=== PATIENT | female | born 1980 | race Caucasian/White ===

== ENCOUNTER 2018-01-29 22:31 | Inpatient (IN) | payer OTHER ==
[2018-01-29] MEDS ORDERED: Methylergonovine 0.2 MG/ML VIAL IM PRN (23:19)
[2018-01-29] MEDS ORDERED: HYDROcodone/Acetaminophen 5/325 mg Tablet PO PRN (23:19)
[2018-01-29] MEDS ORDERED: Misoprostol 200 MCG TAB PR PRN (23:19)
[2018-01-29] MEDS ORDERED: Ibuprofen 800 MG TAB PO PRN (23:19)
[2018-01-29] MEDS ORDERED: Ondansetron HCl/PF 4 MG/2 ML Vial IVP PRN (23:19)
[2018-01-29] MEDS ORDERED: Acetaminophen 500 MG TAB PO PRN (23:19)
[2018-01-29] MEDS ORDERED: Lidocaine 1% (PF) 30 ML VIAL SC PRN (23:19)
[2018-01-29] MEDS ORDERED: Butorphanol Tartrate 1 MG/ML VIAL SLOW IVP PRN (23:19)
[2018-01-29] MEDS ORDERED: Carboprost 250 MCG/ML AMP IM PRN (23:19)
[2018-01-29] MEDS ORDERED: Promethazine HCl 25 MG/ML VIAL IM PRN (23:19)
[2018-01-29] MEDS ORDERED: Diphenoxylate HCl/Atropine Tablet PO PRN (23:19)
[2018-01-29] MEDS: Lactated Ringer's 1,000 ML IV SCH (23:30)
[2018-01-29 23:38] LABS: Hemoglobin 10.3 g/dL (12.0-16.0); Mean Corpuscular HGB CONC 35.5 g/dL (32.0-36.0); Mean Corpuscular Hemoglobin 27.7 pg (27.0-31.0); Mean Corpuscular Volume 78.1 fL (78.0-98.0); Mean Platelet Volume 8.8 fL (7.4-10.4); Platelet Count 247 thou/uL (130-400); RBC Distribution Width 12.6 % (11.5-14.5); Red Blood Cell (RBC) Count 3.74 mill/uL (4.20-5.40); White Blood Cell (WBC) Count 9.9 thou/uL (4.8-10.8)
[2018-01-30 00:18] LABS: Syphilis Antibody Nonreactive (Nonreactive); Syphilis Antibody Index 0.14 S/CO (<1.00 Non-Reactive)
[2018-01-30 01:16] LABS: HBSAg Index 0.13 S/CO (0-0.99); HIV (1/2) Antibody/Antigen Non-Reactive (NonReactive); HIV 1/2 INDEX 0.07 S/CO (<1.00); Hep B Surf Ag Non-Reactive S/CO (NonReactive)
[2018-01-30] MEDS: NS w/ Oxytocin 10 units 500 ML IV SCH ×2 (03:09→18:52)
[2018-01-30] MEDS ORDERED: DISCONTINUE ALL PREVIOUS NARCOTICS FS SCH (06:00)
[2018-01-30] MEDS ORDERED: Bupivacaine 0.5% 20 ML, fentaNYL Citrate/PF 400 MCG in Sodium Chloride 0.9% 72 ML EPIDURAL SCH (06:00)
[2018-01-30] MEDS: NS / Oxytocin 40 units/1000ml 1,000 ML IV PRN ×2 (09:15→10:30)
--- NOTE | 2018-01-30 11:22 | HP ---
CHIEF COMPLAINT: Rupture of membranes. HISTORY OF PRESENT ILLNESS: Ms. Kirstin Zhao is a 37-year-old G8, P3 at 40 weeks and 0 day by a LMP consistent with 11-week crown rump length who presented to labor and delivery with complaints of rupture of membranes. She was found to have gross rupture of membranes and was kept for induction. The patient was started on Pitocin and has made progress into active labor. PAST MEDICAL HISTORY: Denies. PAST SURGICAL HISTORY: Laparoscopic surgery for an ectopic . GYNECOLOGY HISTORY: Denies any STDs. History of normal Pap smears. MEDICATIONS: vitamins. SOCIAL HISTORY: Denies tobacco, alcohol, or drug use. ALLERGIES: SULFA allergy. OBSTETRICAL HISTORY: 1. Term forcep-assisted vaginal delivery. 2. Spontaneous at 6 weeks. 3. Term normal spontaneous vaginal delivery. 4. Left ovarian ectopic status post a laparoscopic left salpingo-oophorectomy. 5. Term normal spontaneous vaginal delivery. 6. Spontaneous . 7. 16-week missed and treated with medications and negative workup. 8. Current . OBJECTIVE: VITAL SIGNS: Stable. GENERAL: No acute distress. The patient is comfortable with epidural. CARDIOVASCULAR: Regular rate and rhythm. RESPIRATORY: Unlabored breathing. ABDOMEN: Gravid, nontender to palpation. Estimated weight approximately 7 pounds. EXTREMITIES: Negative Homans', negative edema. heart tones 120s, moderate variability, positive accelerations, no decelerations, category 1. Tocometer contractions q.2-4 minutes. LABORATORY DATA: Blood type is AB negative, antibody screen is negative. NIPT is negative. Maternal serum AFP is negative, GBS is negative. One-hour glucose tolerance is positive, but 3-hour glucose tolerance is negative. Pap smear is normal. HPV testing negative, gonorrhea and chlamydia are negative. Hepatitis B surface antigen is nonreactive. Rubella is immune. RPR is nonreactive, HIV is nonreactive. ASSESSMENT: 1. A 40-week intrauterine . 2. Prelabor rupture of membranes. 3. Advanced maternal age. 4. Rh negative. PLAN: Admission to L&D for delivery. Continue current Pitocin regimen. Rhogam PP. MTDD
[2018-01-30] MEDS: Lactated Ringer's 1,000 ML IV SCH ×3 (13:45→18:52)
[2018-01-30] MEDS ORDERED: Bupivacaine/Epinephrine 0.25% 30 ML VIAL ONE (21:00)
[2018-01-30] MEDS ORDERED: Lidocaine 2% PF Inj 2 ML VIAL ONE (21:00)
[2018-01-30] MEDS ORDERED: Ibuprofen 600 MG TAB PO PRN (22:47)
[2018-01-30] MEDS ORDERED: HYDROcodone/Acetaminophen 5/325 mg Tablet PO PRN ×2 (22:48)
[2018-01-31] MEDS: Lactated Ringer's 1,000 ML IV SCH (01:16)
[2018-01-31] MEDS ORDERED: Preparation H Ointment 28 GM TUBE PR PRN (07:30)
[2018-01-31] MEDS ORDERED: Sodium Chloride 0.9% 1,000 ML IV SCH (07:30)
[2018-01-31] MEDS ORDERED: Zolpidem Tartrate 5 MG TAB PO PRN (07:30)
[2018-01-31] MEDS ORDERED: Benzocaine/Menthol 20-0.5% 60 ML CAN TOP PRN (07:30)
[2018-01-31] MEDS ORDERED: Lanolin Ointment 7 GM TUBE TOP PRN (07:30)
[2018-01-31] MEDS ORDERED: traMADol HCl 50 MG TAB PO PRN ×2 (07:30)
[2018-01-31] MEDS ORDERED: Milk Of Magnesia 30 ML UDCUP PO PRN (07:30)
[2018-01-31] MEDS ORDERED: NS / Oxytocin 40 units/1000ml 1,000 ML IV SCH (07:30)
[2018-01-31] MEDS ORDERED: Misoprostol 200 MCG TAB VAG SCH (07:30)
[2018-01-31] MEDS ORDERED: diphenhydrAMINE 25 MG CAP PO PRN (07:30)
[2018-01-31] MEDS ORDERED: Methylergonovine 0.2 MG/ML VIAL IM PRN (07:30)
[2018-01-31] MEDS ORDERED: Acetaminophen/Codeine 30-300mg Tablet PO PRN ×2 (07:30)
[2018-01-31] MEDS ORDERED: HYDROcodone/Acetaminophen 5/325 mg Tablet PO PRN ×2 (07:30)
[2018-01-31] MEDS ORDERED: Adacel (T-DAP) 0.5 ML VIAL IM SCH (07:30)
[2018-01-31] MEDS ORDERED: Methylergonovine 0.2 MG TAB PO PRN (07:30)
[2018-01-31] MEDS ORDERED: Promethazine HCl 25 MG/ML VIAL IM PRN (07:30)
[2018-01-31] MEDS ORDERED: Ondansetron HCl/PF 4 MG/2 ML Vial IVP PRN (07:30)
[2018-01-31] MEDS ORDERED: Bisacodyl 10 MG SUPP PR PRN (07:30)
[2018-01-31] MEDS ORDERED: Varicella virus, LIVE 0.5 ML VIAL SC SCH (07:30)
[2018-01-31] MEDS ORDERED: Measles/Mumps/Rubella 10 MCG/0.5 ML VIAL SC SCH (07:30)
--- NOTE | 2018-01-31 07:56 | PDOC.PP ---
Post Progress Note Post Day #: 1 Subjective: Mild cramping. No other concerns. Breast feeding. Minimal lochia. PO intake tolerated: yes Flatus: yes Ambulation: yes Vital Signs (12 hours) Temp Pulse Resp BP Pulse Ox 01/31/18 04:10 98.1 F 62 18 01/31/18 01:12 98.1 F 62 18 112/68 100 Weight Weight 6.349 oz - Physical Examination General: NAD Cardiovascular: RRR Respiratory: non-labored breathing Abdominal: no distention, appropriately TTP Fundus firm & at: below umbilicus Extremities: negative homans (B) Neurological: no gross focal deficits Psychiatric: A&Ox3, normal affect Result Diagrams: 01/29/18 23:16 Additional Labs: Post Labs Blood Type AB NEGATIVE 01/29/18 23:16 Hep Bs Antigen Non-Reactive S/CO (NonReactive) 01/29/18 23:16 (1) Anemia Code(s): D64.9 - ANEMIA, UNSPECIFIED Status: Acute Qualifiers: Anemia type: iron deficiency (2) Vaginal delivery Code(s): O80 - ENCOUNTER FOR FULL-TERM UNCOMPLICATED DELIVERY Status: Acute - Assessment/Plan PPD1 VSSAF Stable for d/c home. Continue Fe. F/U 6 weeks.
[2018-01-31] MEDS ORDERED: Ferrous Sulfate 325 MG TAB PO SCH (08:00)
[2018-01-31] MEDS: Ibuprofen 800 MG TAB PO SCH ×2 (08:09→13:42)
[2018-01-31 08:42] LABS: Hemoglobin 10.2 g/dL (12.0-16.0); Mean Corpuscular HGB CONC 34.8 g/dL (32.0-36.0); Mean Corpuscular Hemoglobin 27.7 pg (27.0-31.0); Mean Corpuscular Volume 79.6 fL (78.0-98.0); Mean Platelet Volume 8.7 fL (7.4-10.4); Platelet Count 179 thou/uL (130-400); RBC Distribution Width 12.7 % (11.5-14.5); Red Blood Cell (RBC) Count 3.68 mill/uL (4.20-5.40); White Blood Cell (WBC) Count 9.5 thou/uL (4.8-10.8)
[2018-01-31] MEDS ORDERED: Docusate Calcium (SURFAK) 240 MG CAP PO SCH (09:00)
[2018-01-31] MEDS ORDERED: Prenatal Vitamin 1 TAB PO SCH (09:00)
[2018-01-31 12:38] VITALS: BP 122/76; TEMP 97.9
== END 2018-01-31 14:30 | disposition home or self-care (01) | DRG 775 ==
LOC: L&D/OP 22:31 → L&D 01-30 01:02 → 3SE 01-30 13:24
PROVIDERS: ADMIT Obstetrics & Gynecology; ATTEND Obstetrics & Gynecology
PROC: 10E0XZZ Delivery of Products of Conception, External Approach (ICD-10-PCS; principal; 2018-01-30)
DX: O36.0930 Maternal care for other rhesus isoimmunization, third trimester, not applicable or unspecified (principal); Z3A.40 40 weeks gestation of pregnancy; Z37.0 Single live birth; O70.0 First degree perineal laceration during delivery
CPT/HCPCS: 36415; 51702; 85027; 86780; 86850; 86900; 86901; 87340; 87389; 99285; J2210; J3010; J3490; J7050